=== PATIENT | male | born 1965 | race Caucasian/White ===

== ENCOUNTER 2018-09-08 00:13 | Emergency (ER) | payer OTHER ==
[~2018-09-08] VITALS: Ht 172.7 cm; Wt 86.4 kg
[2018-09-08 00:19] VITALS: Ht 172.7 cm; Wt 86.4 kg
[2018-09-08] MEDS ORDERED: IBUPROFEN 600 MG TAB PO ONE (00:30)
--- NOTE | 2018-09-08 00:43 | ERD ---
ER Documentation Chief Complaint Chief Complaint "OK TO BOOK"; BLE CRAMPING HPI This is a very pleasant 52-year-old male who is here as a medical clearance for [facility]. Apparently the gentleman had bilateral lower extremity cramping that started his kidney disease but his usual self. He denies any fevers chills nausea vomiting. Denies any other current complaints. ROS All systems reviewed and are negative except as per history of present illness. Physical Exam Vitals Vital Signs Date Temp Pulse Resp B/P (MAP) Pulse Ox O2 O2 Flow FiO2 Time Delivery Rate 09/08/18 98.2 109 20 160/86 100 00:19 (110) Physical Exam Const: No acute distress Head: Atraumatic Eyes: Normal Conjunctiva ENT: Normal External Ears, Nose and Mouth. Neck: Full range of motion. No meningismus. Resp: Clear to auscultation bilaterally Cardio: Regular rate and rhythm, no murmurs Abd: Soft, non tender, non distended. Normal bowel sounds Skin: No petechiae or rashes Back: No midline or flank tenderness Ext: No cyanosis, or edema Neur: Awake and alert Psych: Normal Mood and Affect Procedures/MDM Medical decision making: This is a 52-year-old male who comes into the ER with bilateral lower extremity cramping. No evidence of infection. Negative Homans sign. No evidence of DVT. Well-appearing. Given Motrin with good response. Discharged in police custody. Departure Diagnosis: Primary Impression: Encounter for medical clearance for patient hold Condition: Stable Patient Instructions: Halfway Clearance KALE HERNÁNDEZ September 08, 2018 00:43
[2018-09-08 00:45] VITALS: BP 158/82; PULSE 100; RESP 19
== END 2018-09-08 00:49 | disposition home or self-care (01) ==
LOC: E/R 00:13
DX: M79.662 Pain in left lower leg (principal); M79.661 Pain in right lower leg; Z01.818 Encounter for other preprocedural examination
CPT/HCPCS: 99282